=== PATIENT | female | born 1960 | race Two or more races ===

== ENCOUNTER → 2018-07-13 | Day surgery (SDC) | payer BC, OTHER ==
--- NOTE | 2018-07-14 13:20 | OP ---
DATE OF OPERATION: 07/13/2018 PREOPERATIVE DIAGNOSIS: Left breast mass, 7 o'clock, 5 cm from the nipple. POSTOPERATIVE DIAGNOSIS: Left breast mass, 7 o'clock, 5 cm from the nipple. PROCEDURE: Left ultrasound-guided core biopsy with clip placement. ANESTHESIA: Local. ATTENDING SURGEON: Rodrigo Waddell MD ESTIMATED BLOOD LOSS: Minimal. COMPLICATIONS: None, implant intact. PROCEDURE: The patient was made aware of the risks and benefits of the procedure, including possible implant rupture. She was placed in a supine position, and under sterile conditions, with 1% lidocaine for local anesthesia, a small raquel was made in the skin. Using a 13-gauge suction biopsy device under ultrasound guidance, multiple cores were obtained and submitted to Pathology. Likewise under ultrasound guidance, a U-shaped clip was placed into the biopsy region. Well tolerated by patient. Steri-Strips and a sterile bandage were applied. Will contact her with the results. No indication that the implant was ruptured or injured during the procedure. RODRIGO WADDELL M.D. [id number]
--- NOTE | 2018-07-15 15:49 | PATH ---
Surgical Pathology Report Patient Name: DEYSI PENA [facility]. Rec. #: [id number] /Age/Gender: 1960 (Age: 57) / F Account: [id number] Location: [facility] BREAST CENT Taken: 07/13/2018 Received: 07/13/2018 Reported: 07/15/2018 Physicians: Otto Peterson M.D. Alvin Chisolm, M.D. Specimen(s) Received LEFT BREAST CORE BIOPSY 7:00 5CM FN Clinical History Nonpalpable lesion Ultrasound findings: Suspicious Final Diagnosis LEFT BREAST, 7:00, 5 CM FN, CORE BIOPSY: BREAST TISSUE WITH FIBROADENOMA. REMAINDER OF THE BREAST TISSUE SHOWING APOCRINE METAPLASIA AND STROMAL FIBROSIS. Electronically Signed Dayne Ivory M.D. Gross Description Received in formalin labeled "left breast biopsy 7:00, 5cmfn," is a 1.5 x 1.4 x 0.3 cm aggregate of multiple orantes-yellow, irregular to cylindrical portions of fibroadipose tissue admixed with blood clot. The formalin is filtered and the specimen is entirely submitted in one cassette. Total formalin fixation time: Approximately 25 hours 07/14/201807/14/2018
== END | disposition home or self-care (01) ==
LOC: FRADUS-SUR 15:18
PROVIDERS: ATTEND Surgery Surgical Oncology
PROC: 0HBU3ZX Excision of Left Breast, Percutaneous Approach, Diagnostic (ICD-10-PCS; principal; 2018-07-13)
DX: D24.2 Benign neoplasm of left breast (principal); N60.32 Fibrosclerosis of left breast; N64.89 Other specified disorders of breast; N63.24 Unspecified lump in the left breast, lower inner quadrant
CPT/HCPCS: 19083; 77065-TC; 88305-TC